=== PATIENT | male | born 1955 | race American Indian/Alaskan Native ===

== ENCOUNTER 2017-11-18 17:21 | Emergency (ER) | payer MEDICARE, MEDICAID ==
--- NOTE | 2017-11-18 17:37 | EDM.PDOC ---
ED HPI GENERAL MEDICAL PROBLEM - General Stated Complaint: BY [facility] Time Seen by Provider: 11/18/17 17:25 Source of Information: Reports: Patient, EMS, EMS Notes Reviewed, RN, RN Notes Reviewed History Limitations: Reports: No Limitations - History of Present Illness Onset: Other (Reports pain has been off and on since that time. Reports significantly worse today at 1630. ) Onset Date: 11/17/17 Onset Time: 18:00 Location: Reports: Chest Quality: Reports: Other (Like a cramping in my chest. ) Severity: Moderate Improves with: Reports: Medication (Patient recieved Nitroglycerin per EMS x2) Associated Symptoms: Reports: Chest Pain, Diaphoresis, Nausea/Vomiting, Shortness of Breath - Related Data Allergies Allergy/AdvReac Type Severity Reaction Status Date / Time No Known Allergies Allergy Verified 11/18/17 17:53 Home Meds: Home Meds . [No Known Home Meds] 01/01/14 [History] Social & Family History - Tobacco Use Years of Tobacco use: 36 Used Tobacco, but Quit: No Second Hand Smoke Exposure: Yes - Alcohol Use Days Per Week of Alcohol Use: 0 - Recreational Drug Use Recreational Drug Use: No ED ROS GENERAL - Review of Systems Review Of Systems: ROS reveals no pertinent complaints other than HPI. ED EXAM, GENERAL - Physical Exam Exam: See Below Exam Limited By: No Limitations General Appearance: Alert, WD/WN, No Apparent Distress Eye Exam: Bilateral Eye: PERRL Ears: Normal External Exam, Normal Canal, Hearing Grossly Normal, Normal TMs Ear Exam: Bilateral Ear: Auricle Normal, Canal Normal, TM normal Nose: Normal Inspection, Normal Mucosa, No Blood Throat/Mouth: Normal Inspection, Normal Lips, Normal Teeth, Normal Gums, Normal Oropharynx, Normal Voice, No Airway Compromise Head: Atraumatic, Normocephalic Neck: Normal Inspection, Supple, Non-Tender, Full Range of Motion Respiratory/Chest: No Respiratory Distress, Lungs Clear, Normal Breath Sounds, No Accessory Muscle Use, Chest Non-Tender Cardiovascular: Normal Peripheral Pulses, No Edema, No Gallop, No JVD (Heart rate irregular), No Murmur, No Rub GI/Abdominal: Normal Bowel Sounds, Soft, Non-Tender, No Organomegaly, No Distention, No Abnormal Bruit, No Mass (Male) Exam: Deferred Rectal (Males) Exam: Deferred Back Exam: Normal Inspection, Full Range of Motion, NT Extremities: Normal Inspection, Normal Range of Motion, Non-Tender, Normal Capillary Refill, No Pedal Edema Neurological: Alert, Oriented, CN II-XII Intact, Normal Cognition, Normal Gait, Normal Reflexes, No Motor/Sensory Deficits Psychiatric: Normal Affect, Normal Mood Skin Exam: Warm, Dry, Intact, Normal Color, No Rash Lymphatic: No Adenopathy EKG INTERPRETATION EKG Date: 11/18/17 Time: 17:25 Rhythm: Other (Tachycardia. ST elevation noted in V2 V3 V4. Irregular) Rate (Beats/Min): 91 [place]: LAD-Left [place] Deviation P-Wave: Present ST-T: Elevated (V2 V3 and V4) Comparison: NA - No Prior EKG (No prior EKG beside one obtained at the clinic- increased elevation noted in V2 V3 V4) Course - Orders/Labs/Meds Orders: Active Orders 24 hr Category Date Time Status EKG Documentation Completion [RC] URGENT Care 11/18/17 17:16 Active Chest 1V Frontal [CR] Urgent Exams 11/18/17 17:16 Ordered CBC WITH AUTO DIFF [HEME] Urgent Lab 11/18/17 17:16 Ordered COMPREHENSIVE METABOLIC PN,CMP [CHEM] Urgent Lab 11/18/17 17:16 Ordered DRUG SCREEN URINE BIORAD [URCHEM] Stat Lab 11/18/17 17:16 Ordered INR,PT,PROTHROMBIN TIME [COAG] Stat Lab 11/18/17 17:16 Ordered TROPONIN I [CHEM] Urgent Lab 11/18/17 17:16 Ordered UA W/MICROSCOPIC [URIN] Stat Lab 11/18/17 17:16 Ordered Departure - Departure Time of Disposition: 17:45 Disposition: DC/Tfer to Acute Hospital 02 Reason for Transfer *Q: Other Condition: Fair Clinical Impression: STEMI (ST elevation myocardial infarction) Qualifiers: Involved coronary artery: unspecified coronary artery Qualified Code(s): I21.3 - ST elevation (STEMI) myocardial infarction of unspecified site Forms[facility] Goals: 1736: [facility] call called due to STEMI Talked to Dr Mccann and she has agreed to accept the patient.
--- NOTE | 2017-11-18 17:49 | CR ---
Clinical history: 62-year-old male emergency department with chest pain. 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 Normal cardiac silhouette and bony thorax. No cephalization of vascular flow, signs of alveolar edema or dependent pleural effusion (external ca rdiac monitor leads). Midline tracheal airway unremarkable. No lung mass or hilar lymphadenopathy. No focal lobar pneumonia . No pneumothorax. CONCLUSION: No acute cardiopulmonary abnormality.
[2017-11-18] MEDS ORDERED: Heparin Sodium 5,000 Units/ML Vial IVPUSH ONE (17:54)
[2017-11-18 17:59] LABS: CHLORIDE,CL 101 mmol/L (101-111); SODIUM,NA 134 mmol/L (135-145)
[2017-11-18] MEDS ORDERED: Heparin Sodium/D5W 25,000 UNITS/500 ML BAG IV SCH (18:00)
[2017-11-18] MEDS ORDERED: Clopidogrel 75 MG Tab PO ONE (18:02)
[2017-11-18] MEDS ORDERED: Tenecteplase 50 MG Kit IV ONE (18:02)
--- NOTE | 2017-11-19 16:18 | EKG ---
11/18/2017 - BRENDEN SIDHU D - TIME: 1822. EKG showed ST-segment elevation in anterior leads. Q-wave in inferior leads consistent with prior inferior wall myocardial infarction. [facility] /[id number]
--- NOTE | 2017-11-19 16:18 | EKG ---
11/18/2017 - BRENDEN SIDHU - TIME: 1725 EKG showed sinus tachycardia. There is ST-segment elevation in anterior lead, Q- wave in inferior leads consistent with prior myocardial infarction. [facility] /[id number]
== END 2017-11-18 18:51 ==
LOC: DL.ED 17:21
DX: I21.3 ST elevation (STEMI) myocardial infarction of unspecified site (principal); Z77.22 Contact with and (suspected) exposure to environmental tobacco smoke (acute) (chronic)
CPT/HCPCS: 36415; 71045; 80053; 84484; 85025; 85610; 93005; 93010; 96365; 96375; 99284; 99285; A9270; J1644; J3101